=== PATIENT | male | born 1940 | race Caucasian/White ===

== ENCOUNTER 2022-10-24 10:11 | Outpatient (CLI) | payer OTHER | END 2022-10-24 10:12 | disposition home or self-care (01) | LOC: DTY/OP 10:11 | PROVIDERS: ATTEND Family Medicine Sports Medicine | DX: E78.2 Mixed hyperlipidemia (principal) | CPT/HCPCS: 97802 ==

== ENCOUNTER 2024-08-04 11:56 | Outpatient (CLI) | payer MEDICARE ==
[2024-08-04 12:45] LABS: #Basophils 0.05 10x3/uL (0.0-0.2); %Basophils 0.5 % (0.0-1.0); %Eosinophils 1.6 % (0.0-10.0); %Lymphocytes 29.8 % (21.0-51.0); %Monocytes 9.1 % (0.0-10.0); %Neutrophils 58.2 % (42.0-75.0); Hematocrit 44.7 % (42.0-52.0); Hemoglobin 14.8 g/dL (14.0-18.0); Mean Corpuscular HGB CONC 33.1 g/dL (32.0-36.0); Mean Corpuscular Hemoglobin 31.2 pg (27.0-31.0); Mean Corpuscular Volume 94.3 fL (78.0-98.0); Mean Platelet Volume 8.7 fL (7.4-10.4); Platelet Count 309 10x3/uL (130-400); RBC Distribution Width 12.7 % (11.5-14.5); Red Blood Cell (RBC) Count 4.74 mill/uL (4.70-6.10)
[2024-08-04 13:00] LABS: Anion Gap 13 mmol/L (10-20); BUN (Urea Nitrogen) 20 mg/dL (8.4-25.7); Calc. Creatinine Clearance 0 mL/min (70-130); Carbon Dioxide 26 mmol/L (23-31); Chloride 105 mmol/L (98-107); Estimated GFR 90; Glucose 91 mg/dL (83-110); Potassium 4.3 mmol/L (3.5-5.1); Sodium 140 mmol/L (136-145)
[2024-08-04 13:01] LABS: INR-International Normal Ratio 1.1; Prothrombin Time 14.2 sec (12.0-14.7)
[2024-08-04 13:02] LABS: PTT 30.5 sec (22.9-36.1)
== END 2024-08-04 11:57 | disposition home or self-care (01) ==
LOC: LABBT 11:56
PROVIDERS: ATTEND Urology
DX: Z01.812 Encounter for preprocedural laboratory examination (principal); N32.0 Bladder-neck obstruction
CPT/HCPCS: 80048; 85025; 85610; 85730; 87086